=== PATIENT | male | born 1945 | race Caucasian/White ===

== ENCOUNTER → 2021-01-20 | Outpatient (CLI) | payer OTHER ==
[~2021-01-20] MED LIST: ALUM-MAG HYDRO360 ML PO; ASCO500 PO; ASPI325 PO; Aspir 8181 MG PO; BENZ100A PO; CHOL10002 PO; CLOP75 PO; Crestor20 MG PO; FOLI1 PO; HYDR1TAB94 PO; IRON325 MG PO; Isosorbide Mono30 MG PO; LOSA25 PO; METO25 PO; NITR.4SL SL; NITR.6SL SL; RANI150 PO; Zocor20 MG PO
== END ==
LOC: LAB SHORT 13:47
DX: D48.5 Neoplasm of uncertain behavior of skin (principal)
CPT/HCPCS: 88342

== ENCOUNTER 2024-08-11 11:44 | Emergency (ER) | payer OTHER ==
[~2024-08-11] VITALS: Ht 172.7 cm; Wt 102.1 kg
[2024-08-11] MEDS ORDERED: CeFAZolin Sodium 2,000 MG in NS 100 ML IV ONE (12:05)
[2024-08-11] MEDS ORDERED: Morphine Sulfate 4 MG/1 ML Injection IV ONE (12:15)
[2024-08-11 12:28] LABS: BASOPHILS ABSOLUTE AUTO 0.09 K/mm3 (0.00-0.23); BASOPHILS PERCENT AUTO 1 % (0-2); EOSINOPHILS ABSOLUTE AUTO 0.15 K/mm3 (0.00-0.68); EOSINOPHILS PERCENT AUTO 2 % (0-6); Hemoglobin 14.1 g/dL (13.5-17.5); IMMATURE GRAN ABSOLUTE AUTO 0.02 K/mm3 (0.00-0.10); IMMATURE GRAN PERCENT AUTO 0 % (0-1); LYMPHOCYTES ABSOLUTE AUTO 1.61 K/mm3 (0.84-5.20); LYMPHOCYTES PERCENT AUTO 22 % (21-46); MONOCYTES ABSOLUTE AUTO 0.62 K/mm3 (0.16-1.47); MONOCYTES PERCENT AUTO 8 % (4-13); Mean Corpuscular HGB Conc 35.3 g/dL (31.5-36.5); Mean Corpuscular Volume 91 fL (80-100); Mean Platelet Volume 10.1 fL (9.1-12.4); NEUTROPHILS ABSOLUTE AUTO 4.94 K/mm3 (1.96-9.15); NEUTROPHILS PERCENT AUTO 67 % (41-73); Platelet Count 222 K/mm3 (150-400); RDW Coefficient Variation 13.4 % (11.7-14.2); RDW Standard Deviation 44.9 fL (35.1-46.3); White Blood Cell Count 7.43 K/mm3 (4.00-11.30)
[2024-08-11] MEDS ORDERED: Diphth,Pertuss(Acell),Tet Vac 0.5 ML VIAL IM ONE (12:35)
[2024-08-11 13:00] VITALS: BP 139/118
[2024-08-11 13:00] LABS: Albumin, Blood 3.9 g/dL (3.4-5.0); Albumin/Globulin Ratio 1.3 (0.8-1.8); Bilirubin, Total 1.2 mg/dL (0.1-1.0); Bun/Creatinine Ratio 13.2 (12.0-20.0); Calcium, Blood 8.4 mg/dL (8.5-10.1); Creatinine, Blood 0.91 mg/dL (0.60-1.20); Potassium, Blood 4.3 mmol/L (3.5-5.5); Total Protein, Blood 6.9 g/dL (6.4-8.2)
[2024-08-11] MEDS ORDERED: CEPH500 PO (14:19)
== END 2024-08-11 14:25 | disposition home or self-care (01) ==
LOC: ER 11:44
PROVIDERS: Student in an Organized Health Care Education/Training Program
DX: S68.522A Partial traumatic transphalangeal amputation of left thumb, initial encounter (principal); I10 Essential (primary) hypertension; I25.2 Old myocardial infarction; K21.9 Gastro-esophageal reflux disease without esophagitis; W31.2XXA Contact with powered woodworking and forming machines, initial encounter; Z95.5 Presence of coronary angioplasty implant and graft; Z95.1 Presence of aortocoronary bypass graft; Z87.891 Personal history of nicotine dependence; E78.5 Hyperlipidemia, unspecified; Z87.820 Personal history of traumatic brain injury; Z88.8 Allergy status to other drugs, medicaments and biological substances; Z79.899 Other long term (current) drug therapy; Z79.02 Long term (current) use of antithrombotics/antiplatelets
CPT/HCPCS: 12041; 73120; 80053; 85025; 86850; 86900; 86901; 90471; 90715; 96365-59; 99285-25; J0690

== ENCOUNTER 2024-08-23 12:31 | Day surgery (SDC) | payer OTHER ==
[~2024-08-23] VITALS: Ht 172.7 cm; Wt 97.8 kg
[~2024-08-23 12:31] MED LIST changes: +CEPH500 PO; +Lactated Ringer's 1,000 ML IV ONE
[2024-08-23] MEDS ORDERED: CeFAZolin Sodium 2,000 MG VIAL ONE (12:48)
[2024-08-23] MEDS ORDERED: Lactated Ringer's 1,000 ML IV ONE (13:20)
[2024-08-23] MEDS ORDERED: Lidocaine 1%-Epineph 1:100000 20 ML MDV ONE (13:23)
[2024-08-23] MEDS ORDERED: Sodium Bicarb 8.4% 1 MEQ/ML 50 ML Vial ONE (13:26)
--- NOTE | 2024-08-23 13:54 | NUR ---
08/23/24 1354 Rosa Maria Millan TIME OUT DONE PRIOR TO BLOCK WITH DR LLAMAS. PT TOLERATED BLOCK VERY WELL.
[2024-08-23] MEDS ORDERED: FentaNYL Citrate 50 MCG/ML 2 ML Injection ONE (14:47)
[2024-08-23] MEDS ORDERED: propofoL 20 ML IV ONE (15:15)
[2024-08-23] MEDS ORDERED: Ketorolac Tromethamine 30mg Vial ONE (15:29)
[2024-08-23] MEDS ORDERED: Dexamethasone Sod Phos 10 MG/ML 1ML VIAL ONE (15:50)
[2024-08-23] MEDS ORDERED: Ondansetron HCl 2 MG / ML 2ML Vial ONE (15:50)
[2024-08-23 16:14] VITALS: BP 117/78
== END 2024-08-23 16:41 | disposition home or self-care (01) ==
LOC: ORSCSDS 12:31
PROVIDERS: Orthopaedic Surgery
PROC: 0X6M0Z1 Detachment at Left Thumb, High, Open Approach (ICD-10-PCS; principal; 2024-08-23 14:00)
DX: S68.522A Partial traumatic transphalangeal amputation of left thumb, initial encounter (principal); W31.2XXA Contact with powered woodworking and forming machines, initial encounter; I10 Essential (primary) hypertension; I25.2 Old myocardial infarction; I25.10 Atherosclerotic heart disease of native coronary artery without angina pectoris; Z87.891 Personal history of nicotine dependence; K21.9 Gastro-esophageal reflux disease without esophagitis; Z79.899 Other long term (current) drug therapy; Z79.02 Long term (current) use of antithrombotics/antiplatelets; F43.10 Post-traumatic stress disorder, unspecified; E66.9 Obesity, unspecified; Z68.32 Body mass index [BMI] 32.0-32.9, adult; Z79.82 Long term (current) use of aspirin
CPT/HCPCS: J0690; J1100; J1885; J2405; J2704; J3010; J7120